=== PATIENT | male | born 1975 | race Caucasian/White ===

== ENCOUNTER 2023-09-06 12:48 | Outpatient (OUT) | payer OTHER, SELFPAY ==
--- NOTE | 2023-09-06 13:37 | CA_ITS ---
Patient Name Site Name RICK NOEL [facility] Account No Medical Record Number Age Sex Date Time [id number] [facility]:[id number] M 09/06/2023 13:12 At the Request Of SHANDA SCHAFER ECHOCARDIOGRAM REPORT PROCEDURE: CA ECHO DOPPLER COMPLETE INDICATIONS: Left leg swelling COMPARISON: None. DESCRIPTION: COMPLETE ECHOCARDIOGRAM Real-time transthoracic echocardiography with 2D, M-mode, spectral and color flow Doppler performed. QUALITY: Technical quality was good. 72 , 330#, BSA 2.64 m2 LEFT VENTRICLE: Normal chamber size. Mild concentric left ventricular hypertrophy. Normal systolic function. LV EF: Normal left ventricular ejection fraction, (>55%). DIASTOLIC: Normal diastolic function. ATRIAL SEPTUM: LEFT ATRIUM: Normal chamber size. RIGHT ATRIUM: Mild dilatation. RIGHT VENTRICLE: Normal chamber size. Normal right ventricular systolic function. TRICUSPID VALVE: Normal mobility and thickness. No stenosis with trivial regurgitation. Unable to assess right-sided pressures due to lack of measurable tricuspid regurgitation. MITRAL VALVE: Normal mobility and thickness. No evidence of mitral valve stenosis. There is no mitral annular calcification. Trivial mitral regurgitation. AORTIC VALVE: Normal trileaflet appearance. No visible sclerosis. Normal leaflet mobility. No evidence of aortic valve stenosis. No aortic regurgitation. AORTIC ROOT: Normal diameter and appearance. PULMONIC VALVE: Not well visualized. No stenosis. No regurgitation. PERICARDIUM: No evidence of pericardial effusion. IVC: Not well visualized. PLEURA: CONCLUSION: 1. Mild concentric left ventricular hypertrophy with normal systolic function. LVEF is 55 to 60%. 2. Normal right ventricular size and systolic function. 3. Normal diastolic function. 4. No significant valvular dysfunction. 5. No pericardial effusion. Adult Echocardiography Procedure Report Left Ventricle LVEDD (3.7 - 5.6 cm): 4.79 cm LVESD (2.2 - 4.0 cm): 3.30 cm LVIVS thickness (0.6 - 1.2 cm): 1.50 cm LVPW thickness (0.5 - 1.0 cm): 1.19 cm e': 0.13 m/s E - e': 7.54 LVOT Max Gradient: 2.97 mm[Hg] LVOT Area (cm2): 0.86 m/s Peak Velocity (LVOT): 0.86 m/s Mean Velocity (LVOT): 0.57 m/s LVOT Diameter 2.39 cm Left Atrium LA Volume Index (2D A2C): 22.73 ml/m2 Left Atrium Systolic Dimension: 4.76 cm Mitral Valve MV E to A Ratio: 1.86 Mitral Valve A-Wave Peak Velocity: 0.54 m/s Mitral Valve E-Wave Peak Velocity: 1.01 m/s Right Ventricle Aorta AO Root Diam: 3.45 cm Ascending Ao Diam: 3.13 cm Aortic Valve AoV Area (Peak Cong): 2.85 cm2, 2.86 cm2 AoV Area (VTI): 2.82 cm2, 2.77 cm2 Peak Velocity(Antegrade Flow): 1.35 m/s, 1.36 m/s Peak Gradient(Antegrade Flow): 7.24 mm[Hg], 7.44 mm[Hg] Mean Velocity(Antegrade Flow): 0.93 m/s, 0.95 m/s Mean Gradient(Antegrade Flow): 3.93 mm[Hg], 4.04 mm[Hg] Velocity Time Integral: 27.34 cm, 26.40 cm Tricuspid Valve Pulmonic Valve Peak Velocity: 1.10 m/s Peak Gradient: 4.31 mm[Hg], 5.41 mm[Hg] Right Atrium Right Atrium Systolic Pressure: 58.07 ml, 58.07 ml Dictated by: Satnam Alexander M.D. on 09/06/2023 at 20:23 Approved by: Satnam Alexander M.D. on 09/06/2023 at 20:26
--- NOTE | 2023-09-06 13:49 | US_ITS ---
[place] [id number] Patient Name: RICK NOEL MRN: [id number] date: 1975 Sex: M Assigned Patient Location: CARD Current Patient Location: CARD Accession/Order Number: [id number] Exam Date: 09/06/2023 13:59 Report Date: 09/06/2023 15:11 At the request of: SHANDA SCHAFER Procedure: US venous doppler LE BI EXAM: US venous doppler LE BI HISTORY: Left leg swelling M79.89 COMPARISON: None. TECHNIQUE: Grayscale, color and Doppler FINDINGS: Region: Bilateral legs Thrombus: None Flow: Normal Augmentation: Normal Compressibility: Normal Other: Mild to moderate subcutaneous edema of the calves The peroneal veins were not visualized US/US venous doppler LE BI IMPRESSION: No deep or superficial vein thrombus in the visualized legs Electronically authenticated by: RYANN PATTERSON Date: 09/06/2023 15:11
== END 2023-09-06 12:49 | disposition home or self-care (01) ==
LOC: CARD 12:48
PROVIDERS: PCP Nurse Practitioner Family; Visit Provider Nurse Practitioner Family
DX: M79.89 Other specified soft tissue disorders (principal); Z21 Asymptomatic human immunodeficiency virus [HIV] infection status; E11.42 Type 2 diabetes mellitus with diabetic polyneuropathy; I51.7 Cardiomegaly
CPT/HCPCS: 36415; 86361; 87536; 93306; 93970

== ENCOUNTER 2024-08-03 12:42 | Outpatient (REF) | payer OTHER, SELFPAY ==
[2024-08-03 12:59] LABS: Bilirubin Urine NEGATIVE (NEGATIVE); Blood Urine SMALL (NEGATIVE); Clarity Urine CLEAR (CLEAR); Color Urine LT. YELLOW (YELLOW); Glucose Urine UA >=1000 mg/dL (NEGATIVE); Ketones Urine NEGATIVE (NEGATIVE); Leukocyte Esterase Urine SMALL (NEGATIVE); Nitrite Urine POSITIVE (NEGATIVE); Protein Urine NEGATIVE (NEG/TRACE); Urobilinogen Urine 0.2 EU/dL (0.2-1.0); pH Urine 5.5 (5.0-9.0)
[2024-08-03 15:24] LABS: BOX Test Reference Lab FIRELANDS
== END 2024-08-03 12:43 | disposition home or self-care (01) ==
LOC: LAB 12:42
PROVIDERS: PCP Nurse Practitioner Family; Visit Provider Family Medicine
DX: R30.0 Dysuria (principal)
CPT/HCPCS: 36415; 81003; 87086; 87150; 87186